=== PATIENT | female | born 1970 | race Caucasian/White ===

== ENCOUNTER 2021-01-07 13:01 | Emergency (ER) | payer MEDICAID ==
--- NOTE | 2021-01-07 14:03 | EDM.PDOC ---
ED HPI GENERAL MEDICAL PROBLEM - General Chief Complaint: General Stated Complaint: CONGESTED Time Seen by Provider: 01/07/21 13:40 Source of Information: Reports: Patient, RN Notes Reviewed History Limitations: Reports: No Limitations - History of Present Illness INITIAL COMMENTS - FREE TEXT/NARRATIVE: 50-year-old female presents emergency department day complaint of sinus con gestion, she states been ill for about 10 days does have extensive allergy history she has been using all her medications but this is continued to get worse. She has had head pressure mainly in the frontal lobe no nausea or vomiting no postnasal drip. No fever - Related Data Allergies Allergy/AdvReac Type Severity Reaction Status Date / Time minerals [From Enviro Stress] Allergy Difficulty Verified 01/07/21 13:39 Breathing vitamin B complex and C Allergy Difficulty Verified 01/07/21 13:39 [From Enviro Stress] Breathing vitamin E (d-alpha Allergy Difficulty Verified 01/07/21 13:39 tocopherol) Breathing [From Enviro Stress] Home Meds: Home Meds Loratadine/Pseudoephedrine [Claritin-D 24 Hour Tablet] 1 mg PO ASDIRECTED 01/07/21 [History] diphenhydrAMINE HCL [Benadryl Allergy] 25 mg PO DAILY 01/07/21 [History] Past Medical History Respiratory History: Reports: Other (See Below) Other Respiratory History: recent upper resp infection given Z pack with good results may of this year Psychiatric History: Reports: Depression Hematologic History: Reports: Anemia Dermatologic History: Reports: Psoriasis Social & Family History - Caffeine Use Caffeine Use: Reports: None - Recreational Drug Use Recreational Drug Use: No ED ROS GENERAL - Review of Systems Review Of Systems: See Below Constitutional: Denies: Fever HEENT: Reports: Sinus Problem Respiratory: Reports: No Symptoms Cardiovascular: Reports: No Symptoms GI/Abdominal: Reports: No Symptoms ED EXAM, GENERAL - Physical Exam Exam: See Below Exam Limited By: No Limitations General Appearance: Alert, WD/WN, No Apparent Distress Ears: Normal External Exam, Normal Canal, Hearing Grossly Normal, Normal TMs Nose: Normal Inspection, Normal Mucosa, No Blood Throat/Mouth: Normal Inspection, Normal Lips, Normal Teeth, Normal Gums, Normal Oropharynx, Normal Voice, No Airway Compromise Head: Atraumatic, Normocephalic Neck: Normal Inspection, Supple, Non-Tender, Full Range of Motion Respiratory/Chest: No Respiratory Distress, Lungs Clear, Normal Breath Sounds, No Accessory Muscle Use, Chest Non-Tender Cardiovascular: Regular Rate, Rhythm, No Murmur Course - Vital Signs Last Recorded V/S: Last Vital Signs Temp 97.9 F 01/07/21 13:34 Pulse 85 01/07/21 13:34 Resp 20 01/07/21 13:34 BP 125/80 01/07/21 13:34 Pulse Ox 96 01/07/21 13:34 Departure - Departure Time of Disposition: 14:02 Disposition: Home, Self-Care 01 Condition: Fair Clinical Impression: Sinusitis Qualifiers: Sinusitis location: frontal Chronicity: acute Recurrence: non-recurrent Qualified Code(s): J01.10 - Acute frontal sinusitis, unspecified - Discharge Information Instructions: Sinusitis, Adult, [id number] Referrals: PCP,None [Primary Care Provider] - Additional Instructions: Take full course of antibiotics, please followup with your primary care provider in 3-5 days if not better, please call return to the emergency department with worsening of symptoms. Sepsis Event Note (ED) - Evaluation Sepsis Screening Result: No Definite Risk - Focused Exam Vital Signs: Vital Signs Temp Pulse Resp BP Pulse Ox 01/07/21 13:34 97.9 F 85 20 125/80 96 01/07/21 13:28 97.9 F 85 16 125/80 96 - Assessment/Plan Plan: Assessment Acuity = acute Site and laterality = sinusitis Etiology = probable bacterial cause Manifestations = congestion Location of injury = Home Lab values = none Plan Elected to treat empirically levofloxacin she does have an allergy to amoxicillin follow-up primary care 3 to 5 days This note was dictated using [employer] voice recognition software please call with any questions on syntax or grammar.
== END 2021-01-07 14:09 | disposition home or self-care (01) ==
LOC: JP.ED 13:01
DX: J01.10 Acute frontal sinusitis, unspecified (principal); Z88.8 Allergy status to other drugs, medicaments and biological substances; Z91.018 Allergy to other foods
CPT/HCPCS: 99283